=== PATIENT | male | born 2000 | race Caucasian/White ===

== ENCOUNTER 2022-10-19 20:47 | Emergency (ER) | payer SELFPAY ==
[2022-10-19 20:48] VITALS: BP 123/6; PULSE 86; RESP 15; TEMP 37.1; O2SAT 98; BMI 22.2
--- NOTE | 2022-10-19 20:58 | EX.ED.UPPERE ---
HPI <FRANCESCO Van - Last Filed: 10/19/22 21:25> History of Present Illness Chief Complaint: Upper Extremity Injury Narrative Narrative: This.Patient is a 22-year-old male with history of anxiety depression who presents to the emergency department after mechanical fall while at work. Patient is when he was leaving, he fell landing on his states his hands were closed, he will mostly landing on his knuckles. Patient has pain to the lateral side of the right hand to the fifth digit. Patient denies any wrist injury. Denies any head or neck injury. PFSH <FRANCESCO Van - Last Filed: 10/19/22 21:25> PFSH Home Medications ibuprofen 600 mg tablet 600 mg PO Q6H PRN PRN pain #20 TABLETS 10/19/22 [Rx Last Taken Unknown] Allergy/AdvReac Type Severity Reaction Status Date / Time egg [eggs] AdvReac Anaphylaxis Verified 10/19/22 20:53 Social History Smoking Status: Current every day smoker tobacco type: cigarettes ROS <FRANCESCO Van - Last Filed: 10/19/22 21:25> ROS ED ROS Narrative Constitutional: Negative for fever, chills, weight loss, weakness Eyes: Negative for vision loss, vision change, double vision ENT: Negative for any sore throat, ear pain, congestion Cardiovascular: Negative for any chest pain, tightness, palpitations Respiratory: Negative for any cough, sputum production, hemoptysis, dyspnea, dyspnea on exertion, orthopnea Gastrointestinal: Negative for any abdominal pain, nausea, vomiting, diarrhea, constipation, blood in stool, blood in vomit : Negative for any urinary frequency, dysuria, retention, blood in urine Muscle skeletal: Negative for any muscle joint pain, stiffness, myalgias, arthralgias, neck pain, back pain. Positive for right hand pain Neurological: Negative for any headache, syncope, numbness or tingling, dizziness Skin: Negative for any rashes, lumps, itching, abrasions, lacerations Psychiatric: Negative for any depression, anxiety, stress, suicidal ideation, homicidal ideation Hematologic: Negative for any easy bruising, excessive bruising, easy bleeding Allergies: Negative for any eczema, hives, rash EXAM <FRANCESCO Van - Last Filed: 10/19/22 21:25> Physical Exam Narrative Exam Narrative: Vital signs reviewed. Extremities: No peripheral edema, no signs of gross trauma or deformity. Active full range of motion of all extremities. Patient has pain to the dorsal aspect of the hand on the ulnar aspect. Patient has pain to the tip of the fifth finger of the right hand with pain continuing along the metacarpal. There is abrasion noted. No significant swelling or edema. No significant ecchymosis. +2 radial pulse. Patient is able to flex and extend however has significant pain with flexing. Neuro: Cranial nerves II through XII intact, no focal neurological deficits. Skin: Clean dry and intact with no rash, purpura, petechiae, vesicles or pustules. Backs/flank: No CVA tenderness, no midline spinal tenderness, no deformity. Psych: Normal mood and affect. No SI, HI or acute psychosis. Const Vital Signs: 10/19/22 20:48 Temperature 98.7 F Temperature Source Temporal Pulse Rate 86 Respiratory Rate 15 Blood Pressure 123/6 H Blood Pressure Mean 45 Pulse Ox 98 Oxygen Delivery Method Room Air MDM <FRANCESCO Van - Last Filed: 10/19/22 21:25> [facility] Treatment and Re-Evaluation Narrative: Patient appears generally well. Patient appears nontoxic. Patient presents to the emergency department after a mechanical fall landing on his right hand. Patient did have range of motion of the right hand. There is no evidence of suspect any tendon injury. There is no evidence of any cellulitis, septic joint. Patient did receive x-rays of the left hand, there was a small chip at the proximal distal phalanx. It is slightly intra-articular. Patient will follow-up with orthopedics. He placed in a finger splint with slight extension. Patient will be used Tylenol, ibuprofen. Patient refused analgesia. Patient friend also was given discharge instructions. Patient understands importance of follow-up. He was given return precautions. <Santiago Clark MD - Last Filed: 10/21/22 00:00> [facility] Narrative Medical decision making narrative: I have personally performed a face to face assessment of the patient and have reviewed the SARAH Note. I performed a substantive portion of the visit including all aspects of the following. My galarza findings include: History is fall with injury to right hand, fourth digit fingertip Exam is afebrile. Vital signs noted. GCS 15. Positive tenderness distal phalanx, proximal portion at DIP joint. Good capillary refill. Medical Decision Making check x-ray. Finger splint. Follow-up orthopedics. Discharge. Other additions or changes: [None] Treatment and Re-Evaluation Narrative: Patient appears generally well. Patient appears nontoxic. Patient presents to the emergency department after a mechanical fall landing on his right hand. Patient did have range of motion of the right hand. There is no evidence of suspect any tendon injury. There is no evidence of any cellulitis, septic joint. Patient did receive x-rays of the left hand, there was a small chip at the proximal distal phalanx fourth digit. It is slightly intra-articular. Patient will follow-up with orthopedics. He placed in a finger splint with slight extension. Patient will be used Tylenol, ibuprofen. Patient refused analgesia. Patient friend also was given discharge instructions. Patient understands importance of follow-up. He was given return precautions. Discharge Plan Triage Chief Complaint: Upper Extremity Injury ED Midlevel Provider: Giuseppe Miller ED Provider: Santiago Clark Dx/Rx/DC Orders Clinical Impression: Fall, Finger fracture, right Instructions: ED Fracture, Finger, Closed Prescriptions: New ibuprofen 600 mg tablet 600 mg PO Q6H PRN PRN (Reason: pain) Qty: 20 0RF Referrals: Marco Quick MD [Med Staff - Active Staff] - Activity Restrictions/Additional Instructions: Please follow-up with orthopedics. Continue to ice and elevate. Use the splint until following up. Disposition Disposition: Home, Self Care Discharge Date/Time: 10/19/22 21:43
--- NOTE | 2022-10-19 21:05 | RAD_ITS ---
STUDY: X-RAY - RIGHT HAND REASON FOR EXAM: Male, 22 years old. fall TECHNIQUE: 3 view(s) of the hand. COMPARISON: None. FINDINGS: Normal radiocarpal articulation. Normal distal radioulnar joint. Normal visualized carpal bones. Normal carpal articulations Normal carpometacarpal articulation of the thumb. Normal second through fifth carpometacarpal joints. Normal metacarpi. Normal metacarpophalangeal joint of the thumb. Normal interphalangeal joint of the thumb. Normal proximal and distal phalanges of the thumb. Normal metacarpophalangeal joints of the second through fifth fingers. Normal proximal and distal interphalangeal joints of the second through fifth fingers. Minimally displaced fracture base of the fifth distal phalanx. The soft tissue structures are unremarkable. RAD/Hand Min 3 Views IMPRESSION: Intra-articular mallet finger fracture fifth distal phalanx Electronically Signed: Grady Sparrow MD at 21:39 EST ,
[2022-10-19] MEDS: Ibuprofen 400 MG Tablet 800 MG PO (21:22)
== END 2022-10-19 21:43 | disposition home or self-care (01) ==
PROVIDERS: Emergency Provider Emergency Medicine; Visit Provider Emergency Medicine
DX: S62.636A Displaced fracture of distal phalanx of right little finger, initial encounter for closed fracture (principal); F17.210 Nicotine dependence, cigarettes, uncomplicated; W19.XXXA Unspecified fall, initial encounter; Y99.0 Civilian activity done for income or pay
CPT/HCPCS: 73130; 99283